=== PATIENT | male | born 1940 | race Caucasian/White ===

== ENCOUNTER → 2018-06-28 | Day surgery (SDC) | payer MEDICARE, BC ==
[~2018-06-28] VITALS: Ht 180.3 cm; Wt 109.0 kg
[~2018-06-28] MED LIST: ACETAMINOPHEN 325 MG TABLET PO PRN; BUPIVACAINE/EPI 0.5% 1:200K ONE; EPINEPHRINE 1 MG/ML, 1ML ONE; EPINEPHRINE TOPICAL SOLN 1 MG/ML, 30ML ONE; FENTANYL PF 100 MCG/2ML IV PRN; FENTANYL PF 100 MCG/2ML ONE; HYDROcodone/APAP 7.5-325MG/15ML UDC PO PRN; KETOROLAC 30 MG/1 ML IM PRN; KETOROLAC 30 MG/1 ML IV PRN; LACTATED RINGERS 1,000 ML IV SCH; LEVO100T5 PO; LIDOCAINE 1%, 20ML ONE; MIDAZOLAM 1 MG/ML, 2ML ONE; MORPHINE SULFATE 4 MG/ML, 1ML IVPush PRN; NEOSPORIN OINT, 15GM ONE; OXYcodone 5 MG/5 ML ORAL.SOL UDC PO PRN; SODIUM CHLORIDE 0.9% 0 ML ONE
[2018-06-28 09:09] VITALS: BP 186/92
== END | disposition home or self-care (01) ==
LOC: OUT 08:04
PROVIDERS: ATTEND Specialist
DX: C44.319 Basal cell carcinoma of skin of other parts of face (principal); Z98.890 Other specified postprocedural states; Z79.899 Other long term (current) drug therapy
CPT/HCPCS: 14040; 88305; 93005; J0171; J3010; J7120; J2250